=== PATIENT | female | born 1960 | race African-American/Black ===

== ENCOUNTER 2019-04-18 11:55 | Emergency (ER) | payer MEDICARE ==
[~2019-04-18] VITALS: Ht 162.6 cm; Wt 81.0 kg
[2019-04-18 13:03] VITALS: BP 132/74
== END 2019-04-18 13:08 | disposition home or self-care (01) ==
LOC: ER 11:55
DX: E11.65 Type 2 diabetes mellitus with hyperglycemia (principal); I10 Essential (primary) hypertension; M19.90 Unspecified osteoarthritis, unspecified site; F17.200 Nicotine dependence, unspecified, uncomplicated; Z79.4 Long term (current) use of insulin; Z88.0 Allergy status to penicillin; Z90.81 Acquired absence of spleen
CPT/HCPCS: 82962; 99283